=== PATIENT | female | born 1960 | race Caucasian/White ===

== ENCOUNTER 2016-07-24 20:50 | Emergency (ER) | payer OTHER ==
[~2016-07-24] VITALS: Ht 165.1 cm; Wt 79.0 kg
[~2016-07-24 20:50] MED LIST: BUPR1TAB36 SL; GABA100C PO; INSLIS SUBQ; INSU100I13 SUBQ; LAMO25TA PO; METF500T PO; NICO1PAT16 TRANSDERM; OLAN5TAB PO; SERT50TA9 PO
[2016-07-24 20:59] VITALS: BP 135/94; PULSE 94; RESP 20; O2SAT 96
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
[2016-07-24] MEDS ORDERED: LORazepam 1 mg Tablet PO ONE (22:40)
[2016-07-25 00:46] VITALS: BP 141/79; PULSE 86; RESP 16; O2SAT 98
== END 2016-07-24 23:35 | disposition home or self-care (01) ==
LOC: EDBD 20:50 → SED 20:50 → EDUNIT# 20:50 → SED 23:35
DX: S00.83XA Contusion of other part of head, initial encounter (principal); X83.8XXA Intentional self-harm by other specified means, initial encounter; Y92.10 Unspecified residential institution as the place of occurrence of the external cause; Y93.89 Activity, other specified; Y99.8 Other external cause status; F19.20 Other psychoactive substance dependence, uncomplicated; R45.1 Restlessness and agitation; F43.0 Acute stress reaction; F31.9 Bipolar disorder, unspecified; K21.9 Gastro-esophageal reflux disease without esophagitis; E11.9 Type 2 diabetes mellitus without complications; F17.200 Nicotine dependence, unspecified, uncomplicated; Z91.5 Personal history of self-harm; Z79.4 Long term (current) use of insulin; Z79.84 Long term (current) use of oral hypoglycemic drugs; Z88.8 Allergy status to other drugs, medicaments and biological substances

== ENCOUNTER 2016-09-28 12:20 | Emergency (ER) | payer OTHER ==
[~2016-09-28] VITALS: Ht 165.1 cm; Wt 75.0 kg
[2016-09-28 12:21] VITALS: BP 123/85; PULSE 91; RESP 20; O2SAT 97
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
[2016-09-28] MEDS ORDERED: Albuterol-Ipratropium 3 mL Inhalation Solution NEB ONE (13:10)
[2016-09-28 13:26] LABS: BASOPHILS % (AUTO) 0.1 % (0-3); EOSINOPHILS % (AUTO) 0 % (0-5); MONOCYTES % (AUTO) 8.7 % (4-12); Mean Corpuscular Hemoglobin 31.6 pg (27.0-35.0); Mean Corpuscular Volume 96.8 fL (81-100); NEUTROPHILS % (AUTO) 71.2 % (40-74); Platelet Count 279 bil/L (150-400)
[2016-09-28 13:27] VITALS: PULSE 88; RESP 16; O2SAT 98
[2016-09-28] MEDS ORDERED: predniSONE 20 mg Tablet PO ONE (13:50)
--- NOTE | 2016-09-28 13:50 | DRSVH ---
PROCEDURE: X-RAY CHEST, TWO VIEWS ([id number]) INDICATIONS: cough for 3 weeks TECHNIQUE: 2 views of the chest were acquired. COMPARISON: [facility], CR, XR CHEST 1VW (PORTABLE), 02/08/2016, 4:26. FINDINGS: Surgical changes and devices: None. Lungs and pleura: No pleural effusions or pneumothorax. Lungs are clear. Mediastinum: Mediastinal contours are normal. Heart size is normal. Bones and chest wall: No suspicious bony abnormalities. Soft tissues appear unremarkable. IMPRESSION: No acute pulmonary process. Dictated by: Alba Smith M.D. on 09/28/2016 at 13:48 Approved by: Alba Smith M.D. on 09/28/2016 at 13:49
[2016-09-28 14:06] VITALS: BP 102/74; PULSE 89; RESP 15; O2SAT 97
[2016-09-28 14:07] VITALS: BP 102/74; PULSE 89; RESP 15; O2SAT 97
== END 2016-09-28 14:08 | disposition home or self-care (01) ==
LOC: SED 12:20
DX: J44.9 Chronic obstructive pulmonary disease, unspecified (principal); K21.9 Gastro-esophageal reflux disease without esophagitis; E11.9 Type 2 diabetes mellitus without complications; F31.9 Bipolar disorder, unspecified; F17.200 Nicotine dependence, unspecified, uncomplicated; Z79.4 Long term (current) use of insulin; Z79.84 Long term (current) use of oral hypoglycemic drugs; Z88.8 Allergy status to other drugs, medicaments and biological substances; Z86.19 Personal history of other infectious and parasitic diseases
CPT/HCPCS: 36415; 71020; 80053; 83735; 85025; 94664; 99284; J7620

== ENCOUNTER 2016-11-24 11:49 | Emergency (ER) | payer OTHER ==
[~2016-11-24] VITALS: Ht 165.1 cm; Wt 77.3 kg
[2016-11-24 11:55] VITALS: BP 124/82; PULSE 73; RESP 16; O2SAT 98
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
[2016-11-24 12:57] LABS: BASOPHILS % (AUTO) 0.5 % (0-3); EOSINOPHILS % (AUTO) 2.8 % (0-5); MONOCYTES % (AUTO) 8.5 % (4-12); Mean Corpuscular Hemoglobin 27.5 pg (27.0-35.0); Mean Corpuscular Volume 82.2 fL (81-100); NEUTROPHILS % (AUTO) 55.1 % (40-74); Platelet Count 150 bil/L (150-400)
[2016-11-24] MEDS ORDERED: LORazepam 1 mg Tablet PO ONE (13:00)
[2016-11-24 17:18] VITALS: BP 103/58; PULSE 63; RESP 18; O2SAT 97
[2016-11-24] MEDS ORDERED: LORazepam 2 mg Tablet PO ONE (17:50)
[2016-11-24 22:57] VITALS: BP 91/68; PULSE 73; RESP 18; O2SAT 98
== END 2016-11-24 23:28 ==
LOC: SED 11:49
DX: F32.9 Major depressive disorder, single episode, unspecified (principal); R45.851 Suicidal ideations; F43.0 Acute stress reaction; E11.9 Type 2 diabetes mellitus without complications; F31.9 Bipolar disorder, unspecified; K21.9 Gastro-esophageal reflux disease without esophagitis; Z79.84 Long term (current) use of oral hypoglycemic drugs; Z79.4 Long term (current) use of insulin; F17.200 Nicotine dependence, unspecified, uncomplicated; Z88.8 Allergy status to other drugs, medicaments and biological substances

== ENCOUNTER 2016-12-05 16:41 | Emergency (ER) | payer OTHER ==
[~2016-12-05] VITALS: Ht 165.1 cm; Wt 72.7 kg
[2016-12-05 16:55] VITALS: BP 133/80; PULSE 81; O2SAT 96
[2016-12-05 17:10] VITALS: BP 127/61; PULSE 75; RESP 12; O2SAT 97
[2016-12-05 18:10] VITALS: BP 99/74; PULSE 78; RESP 14; O2SAT 94
[2016-12-05 18:18] LABS: Mean Corpuscular Hemoglobin 27.7 pg (27.0-35.0); Mean Corpuscular Volume 83.7 fL (81-100)
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
[2016-12-05 19:30] VITALS: BP 113/71; PULSE 79; RESP 12; O2SAT 95
[2016-12-05 19:40] VITALS: BP 111/74; PULSE 77; RESP 18; O2SAT 95
[2016-12-05 20:50] VITALS: BP 147/86; PULSE 75; RESP 17; O2SAT 100
[2016-12-05] MEDS ORDERED: Naloxone 0.4 mg/mL 10 mL Inj IVPUSH PRN (21:10)
[2016-12-05] MEDS ORDERED: Naloxone Inj 2 MG in 0.9% Sodium Chloride 500 ML IV PRN (21:10)
[2016-12-05] MEDS ORDERED: _Naloxone 2 mg/2 mL 2 Syringe Kit (NASAL USE) NASAL PRN (23:00)
[2016-12-06 00:08] VITALS: BP 132/69; PULSE 74; RESP 18; O2SAT 95
== END 2016-12-06 00:10 ==
LOC: EDBD 16:41 → EDUNIT# 16:41 → SED 16:41
DX: T40.1X1A Poisoning by heroin, accidental (unintentional), initial encounter (principal); F11.20 Opioid dependence, uncomplicated; X58.XXXA Exposure to other specified factors, initial encounter; Y92.9 Unspecified place or not applicable; Y93.89 Activity, other specified; Y99.8 Other external cause status; B18.2 Chronic viral hepatitis C; K21.9 Gastro-esophageal reflux disease without esophagitis; E11.9 Type 2 diabetes mellitus without complications; F31.9 Bipolar disorder, unspecified; F43.10 Post-traumatic stress disorder, unspecified; F41.9 Anxiety disorder, unspecified; F17.200 Nicotine dependence, unspecified, uncomplicated; Z91.5 Personal history of self-harm; Z79.84 Long term (current) use of oral hypoglycemic drugs; Z79.4 Long term (current) use of insulin; Z88.8 Allergy status to other drugs, medicaments and biological substances
CPT/HCPCS: 36415; 80053; 81002; 81025; 82948; 84484; 85027; 93005; 96374; 96375; 99285; G0480; J1885; J2310

== ENCOUNTER 2016-12-12 22:19 | Emergency (ER) | payer OTHER ==
[~2016-12-12] VITALS: Ht 165.1 cm; Wt 77.3 kg
[2016-12-12 22:23] VITALS: BP 139/80; PULSE 105; RESP 16; O2SAT 94
== END 2016-12-13 00:15 | disposition left against medical advice (07) ==
LOC: SED 22:19
DX: R45.851 Suicidal ideations (principal); Z53.29 Procedure and treatment not carried out because of patient's decision for other reasons

== ENCOUNTER 2016-12-16 09:31 | Emergency (ER) | payer OTHER ==
[~2016-12-16] VITALS: Ht 165.1 cm; Wt 79.5 kg
[2016-12-16 09:37] VITALS: BP 154/105; PULSE 86; RESP 14; O2SAT 97
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
[2016-12-16] MEDS ORDERED: LORazepam 2 mg Tablet PO ONE (10:10)
[2016-12-16 12:01] VITALS: BP 139/77; PULSE 81; O2SAT 97
== END 2016-12-16 11:59 | disposition home or self-care (01) ==
LOC: SED 09:31
DX: F10.10 Alcohol abuse, uncomplicated (principal); F13.10 Sedative, hypnotic or anxiolytic abuse, uncomplicated; E11.9 Type 2 diabetes mellitus without complications; F31.9 Bipolar disorder, unspecified; F43.10 Post-traumatic stress disorder, unspecified; K21.9 Gastro-esophageal reflux disease without esophagitis; F41.9 Anxiety disorder, unspecified; B19.20 Unspecified viral hepatitis C without hepatic coma; F17.200 Nicotine dependence, unspecified, uncomplicated; Z91.5 Personal history of self-harm; Z79.84 Long term (current) use of oral hypoglycemic drugs; Z88.8 Allergy status to other drugs, medicaments and biological substances

== ENCOUNTER 2017-02-22 12:05 | Inpatient (IN) | payer OTHER, MEDICAID ==
[2017-02-22] VITALS (7 sets, daily range): BP systolic 98–147; BP diastolic 70–89; PULSE 74–113; RESP 14–26; O2SAT 93–100
[~2017-02-22] VITALS: Ht 165.1 cm; Wt 78.3 kg
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
[2017-02-22 14:02] LABS: BASOPHILS % (AUTO) 0.2 % (0-3); EOSINOPHILS % (AUTO) 1.8 % (0-5); MONOCYTES % (AUTO) 6.4 % (4-12); Mean Corpuscular Hemoglobin 27.3 pg (27.0-35.0); Mean Corpuscular Volume 81.4 fL (81-100); NEUTROPHILS % (AUTO) 42.5 % (40-74); Platelet Count 137 bil/L (150-400)
[2017-02-22 14:21] LABS: Magnesium 1.7 mg/dL (1.6-2.6)
[2017-02-22] MEDS ORDERED: GABA-500 PO (14:30)
[2017-02-22] MEDS ORDERED: IPRA3AMP INH (14:36)
[2017-02-22] MEDS ORDERED: INSU100I13 SUBQ (14:36)
[2017-02-22] MEDS ORDERED: SERT100T9 PO (14:36)
[2017-02-22] MEDS ORDERED: ALBU18HF INH (14:36)
[2017-02-22] MEDS ORDERED: HUM100IN3 SUBQ (14:36)
[2017-02-22] MEDS ORDERED: METF1000 PO (14:36)
--- NOTE | 2017-02-22 14:58 | DRSVH ---
PROCEDURE: CT BRAIN WITHOUT CONTRAST ([id number]) INDICATIONS: ACUTE SEIZURE TECHNIQUE: Noncontrast 4.5 mm thick angled axial sections acquired from the foramen magnum to the vertex, with c oronal reformats. COMPARISON: None. FINDINGS: Image quality: Limited by motion artifact. CSF spaces: Basal cisterns are patent. No extra-axial fluid collections. The ventricles are symmet bettina in size and shape. Brain: No intracranial bleeds or masses. There is cerebral volume loss for age, with resultant vent ricular and sulcal prominence. There are minimal periventricular and deep white matter chronic small vessel ischemic changes. There is intracranial internal carotid artery and vertebral artery atheros clerosis. Skull and face: Calvarium and visualized facial bones appear intact, without suspicious lesions. Sinuses: Visualized sinuses and mastoids are clear. IMPRESSION: No acute intracranial disease process. Dictated by: Niecy Acevedo MD, PhD on 02/22/2017 at 14:55 Approved by: Niecy Acevedo MD, PhD on 02/22/2017 at 14:57
[2017-02-22] MEDS ORDERED: Alum-Mag Hydrox-Simeth 30 mL Suspension PO PRN (15:20)
[2017-02-22] MEDS ORDERED: Ondansetron 2 mg/mL 2 mL Inj IVPUSH PRN (15:20)
[2017-02-22] MEDS ORDERED: Polyethylene Glycol (PEG) 17 Gm Powder PO PRN (15:20)
--- NOTE | 2017-02-22 15:31 | DRSVH ---
PROCEDURE: CT CERVICAL SPINE WITHOUT CONTRAST ([id number]) INDICATIONS: trauma TECHNIQUE: Noncontrast 3 mm thick sections acquired from the skull base to the T4 level. Sagittal and coronal r eformats were then constructed. For radiation dose reduction, the following was used: automated exp osure control, adjustment of mA and/or kV according to patient size. COMPARISON: [facility], CT, CT CERVICAL SPINE WO CON, 09/21/2015, 11:35. FINDINGS: Image quality: Excellent. Bones: No fractures or dislocations. Visualized superior ribs are intact. Moderate disc space narr owing at C5-6. There is trace retrolithesis of C4 of C5, C5 on C6. Soft tissues: Prevertebral soft tissues are normal in thickness. No paravertebral hematomas. No ap ical pneumothoraces. IMPRESSION: Multilevel degenerative changes. No visualized fracture. Dictated by: Alba Smith M.D. on 02/22/2017 at 14:24 Approved by: Alba Smith M.D. on 02/22/2017 at 14:29
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
[2017-02-22] MEDS: 0.9% Sodium Chloride 1,000 ML IV SCH (16:03)
[2017-02-22] MEDS ORDERED: Glucose 40% Oral Gel 15 Gm Tube PO PRN (16:50)
[2017-02-22] MEDS ORDERED: 0.9% Sodium Chloride 1,000 ML IV ONE (16:50)
[2017-02-22] MEDS ORDERED: 0.9% Sodium Chloride 500 ML IV ONE (16:50)
[2017-02-22] MEDS ORDERED: Thiamine Inj 200 MG in Dextrose 5% 50 ML IV ONE (16:55)
[2017-02-22] MEDS: Heparin 5,000 Unit/mL Inj SUBQ SCH (17:05)
[2017-02-22] MEDS: Insulin LISPRO 300 Unit/3 mL Inj SUBQ SCH ×2 (17:30→20:29)
--- NOTE | 2017-02-22 19:08 | NUR ---
Admit/CIWA Pt arrived to CCU at 1545 in stable condition. A&O x3 with CIWA scores 0-1. Seizure precautions started, Guadalupe bed alarm on. 2L NC at 97%, pt able to turn independently in bed, asking to watch TV. BP starting to trend down, notified, NS bolus 1.5L given with good response to fluid (see CCU flow sheet). Frequent rounding and CIWA protocol assessments continue.
[2017-02-22] MEDS: Famotidine Inj 20 MG in IV Premix 1 EACH IV SCH (20:30)
[2017-02-22] MEDS: Insulin GLARgine 100 Unit/mL Syringe SUBQ SCH (22:23)
[2017-02-22 22:40] LABS: APPEARANCE,URINE CLEAR (CLEAR,HAZY); COLOR,URINE YELLOW (YELLOW); OCCULT BLOOD,URINE NEGATIVE (NEGATIVE); PH,URINE 5.5 (5.0-8.0); UROBILINOGEN,URINE NORMAL (NORMAL)
[2017-02-23] VITALS (8 sets, daily range): BP systolic 113–167; BP diastolic 50–100; PULSE 65–91; RESP 16–24; O2SAT 94–97
[2017-02-23] MEDS: Heparin 5,000 Unit/mL Inj SUBQ SCH ×3 (00:48→16:30)
[2017-02-23] MEDS: 0.9% Sodium Chloride 1,000 ML IV SCH ×2 (00:49→07:01)
[2017-02-23 05:32] LABS: BASOPHILS % (AUTO) 0.3 % (0-3); EOSINOPHILS % (AUTO) 2.9 % (0-5); MONOCYTES % (AUTO) 8.2 % (4-12); Mean Corpuscular Hemoglobin 27.7 pg (27.0-35.0); Mean Corpuscular Volume 82.4 fL (81-100); Platelet Count 116 bil/L (150-400)
--- NOTE | 2017-02-23 07:40 | NUR ---
CIWA Pt reports starting to feel withdrawal symptoms. Describes the feeling as "the heeby geebies". IV Valium 5mg working so far to settle pt. Max CIWA for NOC shift 11. Will continue to monitor. Seizure precautions and bed alarm. Care ongoing
[2017-02-23] MEDS: Insulin LISPRO 300 Unit/3 mL Inj SUBQ SCH ×4 (08:00→22:57)
[2017-02-23] MEDS: Multivit-Miner-Folic Acid-Iron Tablet PO SCH (08:30)
--- NOTE | 2017-02-23 10:35 | NUR ---
NUTRITION ASSESSMENT: ASSESS: Pt is a 56yo F admitted to CCU for ETOH withdrawal. Pt had a seizure 02/22. Current CIWA is ~11. She is on a Diabetic Diet. No PO recorded yet. Pt reported that she was drinking ~1/2 gallon of vodka/day. Per chart review, pt's wt has been stable x1 year. PMHX: alcohol abuse, Hep C, Hiatal hernia, GERD, DM, PTSD, Bipolar LABS: Reviewed. Catering Driver .39, Glu 189, Ca 8.0, Alb 3.5 MEDS: Reviewed. Insulin, thiamine, MVI GI: 0 BM yet SKIN: no major issues noted CURRENT WTS: 76.8kg, BMI 28.2kg/m2, IBW: 56.8kg DIET: Diabetic EST. NEEDS: Kcals: 1920-2305kcal/day (25-30kcal/kg) Pro: 75-95g/day (1.0-1.2g/kg) NUTRITION DIAGNOSIS: 1.) Inadequate oral intake related to excessive alcohol intake as evidence by pt reported to drink gallon of vodka/day. NUTRITION INTERVENTION: 1.) Will monitor PO intake and labs MONITOR / EVAL: PO, wt, GI, labs, POC, nutrition status. Will continue to monitor per moderate nutrition risk guidelines
--- NOTE | 2017-02-23 13:57 | NUR ---
Social Work: Initial Assessment/Multidisciplinary Rounds D: Per EMR review, pt is a 56 year old female admitted for ETOH Withdrawal. Pt is [facility] with no additional insurance, LTC or VA benefits. PCP is Aliza Sheehan DO at the [facility]. NOK is Trini Pearce, friend, . Advanced directives information provided to the patient. Readmit score is high, 4/8. PT discussed in multidisciplinary rounds; pt will require a chemical dependency assessment. Provider has placed order. BUTTON RIVETER acknowledges order; see CD assessment in separate note. BUTTON RIVETER met with the patient at bedside to discuss discharge planning. Sw role explained; contact information and d/c planning checklist provided to patient. Pt states that she has been living in [place], renting a room. Pt uses no DME, does not drive but is otherwise I with her own self-care. The patient has a health homes worker from [employer], Юлия Rendon ([phone]) who assists the patient with transportation to medical appointments and helping pt to follow up with care as an outpatient. At this time, the patient is declining to speak with a Production Team Leader (CDP) from [facility] for a bedside assessment. Pt states that she is not interested in treatment at this time (see CD Assessment). A: Pt who is I at baseline P: Anticipate pt to discharge home when medically stable; BUTTON RIVETER to continue to follow to assess for discharge needs. ERIKA Quinn Addendum: 02/23/17 at 1409 by ADAM GALLOWAY Amended: Links added.
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
--- NOTE | 2017-02-23 14:13 | NUR ---
Social Work: Chemical Dependency Assessment Current Circumstances/Reason for Referral: 56 year old female admitted for ETOH Withdrawal to [facility]. Pt has a long history of polysubstance use including ETOH, THC, benzodiazepines and heroin. Pt states that she was drinking approximately 1/2 gallon vodka daily for several weeks. History of Substance Use/Treatment: Pt states that she has been using ETOH and other substances for approximately 30 years. The patient has completed inpatient CD treatment multiple times with stays at [facility], [facility], and most recently [facility] in [place] in 2010. After her treatment in 2010 pt reports her longest period of sobriety was 9 months. Withdrawal Symptoms: Pt states that when she experiences withdrawals her symptoms include flu-like symptoms, shaking, vomiting, sweating along with seizures. Mental Health History: The patient is diagnosed with bi-polar and has had at least one suicide attempt via heroin overdose in 2016. The patient was discharged to [facility], volunatirly The patient states that she is not currently enrolled in supportive outpatient services. She was formerly engaged in counseling through [facility] but stopped going to groups and counseling when she started to buy Benzos from a fellow group member. Pt states that she does not currently have any suicidal or homicidal ideation. Family History: Pt states that she is adopted and does not know her biological medical history. Pt states her adopted father was a doctor. Perceptions of Use/Stages of Change: Pt has good insight into her disease process and knows that she needs to quit using ETOH and substances but has limited motivation to complete the necessary tasks for long-term sobriety. Disposition: Pt was provided with outpatient CD resources and declined a CDP assessment from [facility]. Pt states that she does not want to go back to inpatient treatment and states that she knows the tools she needs to stay sober. The patient declined to have BALLIST[employer] EXPERT get her re-established with her outpatient Counseling through [facility]. Pt will likely discharge home and need to follow up with supportive CD services on her own. ERIKA Quinn
[2017-02-23] MEDS: Famotidine Inj 20 MG in IV Premix 1 EACH IV SCH ×2 (17:53→20:07)
--- NOTE | 2017-02-23 21:42 | NUR ---
Transfer to room 3004 Pt made aware of transfer with understanding noted. C/o headache and anxiety. CIWA 12. Valium 10 mg x1 given with some effect. Pt still getting a little bit anxious. Lorazepam given and noted pt was calmer and sleeping afterwards. Report given to Chelsey. Transferred pt to room 3004 with all belongings, meds and chart. Out of the room around 2144.
[2017-02-23] MEDS: Insulin GLARgine 100 Unit/mL Syringe SUBQ SCH (22:13)
--- NOTE | 2017-02-23 22:45 | NUR ---
Transfer pt arrived to room 3004 from room 2014, around 21:45 via wheelchair, all belongings with pt and locked in closet per security lock. pt is A&Ox3. pt IV is patent, IVF infusing. BG 214, scheduled Lantus administered, PRN Lispro requested from pharmacy-not available upon arrival to the room. CIWA score of 16, pt verbalized ativan more effective than Valium, administered per MD orders. seizure pads placed. call light placed within reach, pt verbalized understanding of use. hourly rounding in effect.
[2017-02-24] MEDS: Heparin 5,000 Unit/mL Inj SUBQ SCH ×3 (00:36→17:46)
[2017-02-24] MEDS: 0.9% Sodium Chloride 1,000 ML IV SCH ×2 (02:30→07:16)
[2017-02-24 04:18] VITALS: BP 149/90; PULSE 65; RESP 18; O2SAT 96
[2017-02-24 05:36] LABS: BASOPHILS % (AUTO) 0.3 % (0-3); EOSINOPHILS % (AUTO) 3.7 % (0-5); MONOCYTES % (AUTO) 8.7 % (4-12); Mean Corpuscular Hemoglobin 27.4 pg (27.0-35.0); Mean Corpuscular Volume 81.8 fL (81-100); NEUTROPHILS % (AUTO) 41.7 % (40-74); Platelet Count 85 bil/L (150-400)
[2017-02-24 06:20] LABS: Magnesium 1.7 mg/dL (1.6-2.6); Phosphorus 3.3 mg/dL (2.5-4.9)
[2017-02-24] MEDS: Insulin LISPRO 300 Unit/3 mL Inj SUBQ SCH ×4 (08:00→20:59)
[2017-02-24 08:50] VITALS: BP 120/66; PULSE 83; RESP 18; O2SAT 97
[2017-02-24] MEDS: Multivit-Miner-Folic Acid-Iron Tablet PO SCH (09:50)
[2017-02-24] MEDS: Famotidine Inj 20 MG in IV Premix 1 EACH IV SCH (09:50)
[2017-02-24 10:21] VITALS: PULSE 62
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
[2017-02-24 13:45] VITALS: BP 134/50; PULSE 85; RESP 18; O2SAT 96
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
--- NOTE | 2017-02-24 15:23 | NUR ---
Behavior/CIWA This RN entered pt room to find pt tearful. She stated that she needed to leave. When asked what her plan would be if she leaves she stated "I don't know". She was asked if she had spoken with SW yet to get resources. Pt stated "No". This RN went to discuss pt's distress with SW and was told that SW had been in the pt room for last 45 minutes. SW also stated that the Casing In Line Setter had been asked to visit with pt. When pt was reaproached, she was still tearful and stated that her skin was crawling. Reassessed CIWA at 10 and administered 1mg IV push Ativan. Pt stated that "I will stay now". At this time [facility] Casing In Line Setter arrived to talk with pt. Addendum: 02/24/17 at 1756 by PRISCILLA PEREZ RN Discussed with pt the need for her to communicate with nursing staff how she is feeling. Encouraged her to use call light if she is starting to experience any increase in her symptoms. Emphasized that RNs are here to help her through her withdrawals, and medicate her as necessary. Pt voiced understanding.
--- NOTE | 2017-02-24 15:42 | NUR ---
spiritual care: wrapper opener referral pt expressed overwhelm with current medical situation and her mixed feelings about discharging possibility to rehab facility. Pt described her social/spiritual support as sustaining to her and her thoughts that she "knows what rehab offers" pt reflected briefly on relapse and emphasized it was from drinking and was related to loneliness. Pt said she is tired now but was eager for more conversational time tomorrow. She expressed gratitude for her steve, for advocates in her life and for the chance to make decisions about her life and health. Prayer
--- NOTE | 2017-02-24 18:05 | NUR ---
Rapid Response/Seizure RN walked past pt room and discovered pt laying just within the doorway experiencing seizure activity. RN pressed code blue button as could not see any staff in hallway. This RN placed pt on her side and protected her head from injury while maintaining an airway. As staff arrived this RN called for a rapid response and to cancel code blue. Pt was placed on oxymask 25L. Pt HR 120 per Tele. SPO2 95%. MD ordered 2mg of Ativan stat IV push which was administered. Pt became postictal. Pt was carried to bed using full body sling. MDs assessed and ordered blood work, stat head CT, ABG, 1000mg IV Keppra. This RN transported pt to CT for scan and then transferred pt to CCU room 2019. Report was given to Elisabet Rico RN.
[2017-02-24] MEDS ORDERED: levETIRAcetam Inj 1,000 MG in IV Premix 1 EACH IV ONE (18:20)
--- NOTE | 2017-02-24 18:54 | ABG ---
DateTimeAnalyzed 18:46:02 -_ pH ____7.486 - 7.350 7.450 pCO2 ___34.5__ -mmHg 35.0 45.0 pO2 ___87.1__ -mmHg 69.0 116 HCO3- ___26.0__ -mmol/L 22.0 26.0 ABE ____2.5__ -mmol/L -2.0 2.0 tHb ___12.3__ -g/dL 12.0 18.0 O2Hb ___96.9__ -% COHb ____1.7__ -% 0.0 1.5 MetHb ____0.1__ -% 0.4 1.5 sO2 ___98.8__ -% FIO2 ___21.0__ -% Drawn By LT - Date/Time Notified____ 18:54:00 -_ Notified By LT - Notified Whom ___DR NEVAREZ - K+ ____3.9__ -mmol/L 3.5 5.0 tO2 ___16.9__ -Vol% Asad test _Positive -
[2017-02-24 18:55] LABS: BASOPHILS % (AUTO) 0.2 % (0-3); EOSINOPHILS % (AUTO) 1.8 % (0-5); MONOCYTES % (AUTO) 7.1 % (4-12); Mean Corpuscular Hemoglobin 28.1 pg (27.0-35.0); NEUTROPHILS % (AUTO) 61.8 % (40-74); Platelet Count 103 bil/L (150-400)
--- NOTE | 2017-02-24 19:03 | PCM.PNMED ---
Subjective Date of Service Feb 24, 2017 Subjective Around 1800 this evening the patient was found shaking on the floor in the doorway of her room. Code blue was called and then changed to a rapid response. Patient was given 2mg Ativan and oxymask, and defib leads were placed on her chest showing sinus tach. By the time this was accomplished the patient had stopped shaking. Patient was assessed on the floor, found to have a large goose egg on her head, and was confused. She was lifted and placed back in bed. Initially she was confused but responded to directions. Pupils were responsive on the right more than left but were appropriate in size. After additional recovery the patient passed a full cranial and sensory exam, and became more oriented. CMP, CBC, trop, lactic, CK, and ABG were ordered stat. There was significant difficulty obtaining access to her veins likely due to prior IV drug abuse and overall poor quality of veins. CT brain without contrast was ordered stat and is currently pending. Exam Vital Signs Vital Sign - Last Date Time Temp Pulse Resp B/P Pulse Ox O2 Delivery O2 Flow Rate FiO2 02/24/17 13:45 36.3 85 18 134/50 96 Room Air 02/22/17 16:00 2.00 Intake and Output 02/23/17 02/23/17 02/24/17 Cumulative From/Thru 15:00 23:00 07:00 02/22/17 12:17 - 02/24/17 05:45 Intake Total 3501 ml 2528 ml 878 ml 6907 ml Output Total 1300 ml 900 ml 2100 ml 4300 ml Balance 2201 ml 1628 ml -1222 ml 2607 ml Intake Oral 950 ml 800 ml 100 ml 1850 ml IV Total 2551 ml 1728 ml 778 ml 5057 ml Output Urine Total 1300 ml 900 ml 2100 ml 4300 ml # Voids 4 4 # Bowel Movements 0 2 2 Exam General: Older than stated age, conversant female HEENT: PERRLA, EOMI, nonicteric, membranes moist Lymph: No lymphadenopathy Cardio: Regular rate and rhythm Respiratory: CTA bilaterally, mild crackles bilateral bases Abdomen: Soft, positive bowel sounds, nontender, nondistended Extremities: No edema,sensation intact Psych: Conversant and appropriate Neuro: CN II through XII grossly intact, sensation intact throughout Skin: No rash IVs and Medications Medications Reviewed: Medications were reviewed in detail Lab and Diagnostics Result Diagram: 02/24/17 0510 02/24/17 0510 X-Rays, CTs and MRIs Brain CT IMPRESSION: No acute intracranial disease process. Dictated by: Niecy Acevedo MD, PhD on 02/22/2017 at 14:[address] IMPRESSION: Multilevel degenerative changes. No visualized fracture. Dictated by: Alba Smith M.D. on 02/22/2017 at 14:24 Assessment & Plan 56-year-old female who presents to emergency department for detox from alcohol prior to going into rehabilitation. The patient was in the emergency department she suffered a seizure while walking from triage to her room. Patient then got out of bed and had a second fall while in her room. Alcohol dependence with withdrawal and seizure; present on admission; ongoing and improving -Patient drinking half gallon of vodka daily -Multiple attempts to withdraw and detox -CIWA protocol with phenobarbital 130 mg given once at the beginning -Restraints as necessary -Social work referral for CD -Thiamine 200mg daily -U-Tox revealed marijuana, alcohol, and barbiturates that we gave her. 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 -Continue current treatment plan 02/24/17 Seizur disorder, unknown; present on admission; ongoing -Pt seized in the ED and was initially thought to be due to EtOH withdrawal -Today (02/24/17) patient had a second witnessed seizure at 1800 -After recovery pt was asked again about prior seizures not related to EtOH use and replied she does have a seizure disorder -Keppra 1g loaded now -Keppra 500mg daily -Consider EEG tomorrow; discharge with keppra script and follow-up with neurology -Pending: CT brain w/o contrast, lactic acid, CBC/CMP/CK/Trop -Transfer patient to [facility] Anion gap metabolic acidosis; present on admission; resolved -Lactic acid 2.9 resolved to 1.4 -1.5 L normal saline and 100 mL/HR continued -Recheck in a.m. Hepatitis C; present on admission; unknown chronicity -Previous history of IV drug abuse -Do not see a viral load in her history -Viral load still pending 02/24/17 Type II diabetes with neuropathy; present on admission; ongoing and stable -Last A1c was 8.9 -Home medication: 3 units subcutaneous at bedtime Lantus; 0-11 units 3 times a day WM; metformin -Hold metformin -Lantus 10 in the evening -Low-dose correctional with preprandial 5 units -Hold gabapentin 100 mg by mouth 3 times a day -124 this morning at 8:00 GERD-famotidine 20 mg IV twice a day PTSD/bipolar/depression/anxiety-continue sertraline History of heroin abuse Disposition: Likely discharge tomorrow. She remains in the hospital due to elevated CIWA score in no small tremors with an observed seizure in the emergency department prior to admit. Full code Pain Evaluation: Adequate Pain Control GI Prophylaxis: H2 michelle VTE Mechanical Devices: Intermittant Pneumatic CD Resuscitation Status: CPR: Attempt Resuscitation Time spent 45minutes Attending Statement The patient was seen and examined together with Dr. Eaton on 02/24/17 and I have added additional information to the note above. Karlos Eaton DO Feb 24, 2017 19:03 Keysha Hay DO Feb 25, 2017 16:36
--- NOTE | 2017-02-24 19:08 | DRSVH ---
PROCEDURE: CT BRAIN WITHOUT CONTRAST ([id number]) INDICATIONS: SEIZURE AND HEAD TRAUMA/glf TECHNIQUE: Noncontrast 4.5 mm thick angled axial sections acquired from the foramen magnum to the vertex, with c oronal reformats. COMPARISON: [facility], CT, CT BRAIN WO CON, 02/22/2017, 14:42. FINDINGS: Image quality: Excellent. CSF spaces: Basal cisterns are patent. No extra-axial fluid collections. Ventricles are normal in size and shape. Brain: No midline shift. No intracranial masses or hemorrhage. Anderson-white matter interface is norm al. Skull and face: Calvarium and visualized facial bones are intact, without suspicious lesions. Sinuses: Visualized sinuses and mastoids are clear. IMPRESSION: No acute intracranial disease process. Dictated by: Niecy Acevedo MD, PhD on 02/24/2017 at 19:05 Approved by: Niecy Acevedo MD, PhD on 02/24/2017 at 19:07
[2017-02-24 19:21] LABS: TROPONIN T < 0.010 ug/L (0.0-0.011)
[2017-02-24 19:31] LABS: Creatine Kinase 48 U/L (21-215)
[2017-02-24 20:35] VITALS: BP 156/86; PULSE 65; PULSE 72; RESP 22; O2SAT 97
[2017-02-24] MEDS: Insulin GLARgine 100 Unit/mL Syringe SUBQ SCH (20:59)
--- NOTE | 2017-02-24 23:24 | NUR ---
Transfer to CCU Pt transferred [place] [facility] s/p seizure. Initially A&O only to person. She suddenly because extremely disoriented and started hallucinating: "There are 3 Citizen [place] men over by the door and they want to rape/hurt me" "There are centipedes biting me" "I see gargoyles and demons and bugs on the ceiling". IV Valium and Ativan for symptoms. CIWA 16-38. [place] alarm on bed. Reorientation for when tires to climb out of bed in fear. MD aware. Care ongoing
[2017-02-25] VITALS (8 sets, daily range): BP systolic 117–156; BP diastolic 63–97; PULSE 61–72; RESP 16–22; O2SAT 94–97
[2017-02-25] MEDS: Heparin 5,000 Unit/mL Inj SUBQ SCH ×3 (01:43→17:27)
[2017-02-25] MEDS: 0.9% Sodium Chloride 1,000 ML IV SCH ×3 (01:44→09:23)
[2017-02-25 03:01] LABS: BASOPHILS % (AUTO) 0.2 % (0-3); EOSINOPHILS % (AUTO) 3.1 % (0-5); MONOCYTES % (AUTO) 7.5 % (4-12); Mean Corpuscular Hemoglobin 27.8 pg (27.0-35.0); Mean Corpuscular Volume 79.6 fL (81-100); NEUTROPHILS % (AUTO) 55.3 % (40-74); Platelet Count 103 bil/L (150-400)
[2017-02-25] MEDS: Insulin LISPRO 300 Unit/3 mL Inj SUBQ SCH ×4 (08:00→21:11)
[2017-02-25] MEDS ORDERED: Ketorolac 15 mg/mL Inj IVPUSH ONE (08:35)
[2017-02-25] MEDS: Multivit-Miner-Folic Acid-Iron Tablet PO SCH (08:54)
--- NOTE | 2017-02-25 14:25 | NUR ---
Responded to Rapid Response. Patient placed on an 2L oxymask 100% HR 74 RR 22. Patient on floor assisted lift to bed.
[2017-02-25] MEDS ORDERED: levETIRAcetam Inj 1,500 MG in Dextrose 5% 100 ML IV SCH (14:30)
[2017-02-25] MEDS ORDERED: levETIRAcetam Inj 1,000 MG in IV Premix 1 EACH IV SCH (14:40)
--- NOTE | 2017-02-25 14:45 | PCM.PNMED ---
Subjective Date of Service Feb 25, 2017 Subjective Pt did well overnight and this AM. No complaints. This afternoon the patient had another witnessed seizure at 1400. She was stabilized with 2mg Ativan and sent for CT brain w/o contrast. Neurology was contacted and recommended Keppra 1500mg BID. Exam Vital Signs Vital Sign - Last Date Time Temp Pulse Resp B/P Pulse Ox O2 Delivery O2 Flow Rate FiO2 02/25/17 12:54 36.6 69 16 117/63 94 Room Air 02/22/17 16:00 2.00 Intake and Output 02/24/17 02/24/17 02/25/17 Cumulative From/Thru 15:00 23:00 07:00 02/22/17 12:17 - 02/25/17 00:30 Intake Total 779 ml 7686 ml Output Total 4300 ml Balance 779 ml 3386 ml Intake Oral 1850 ml IV Total 779 ml 5836 ml Output Urine Total 4300 ml # Voids 4 # Bowel Movements 2 Exam Gen: Post-ictal HEENT: Attempts to open eyes on command, no blood in mouth cardio: tachy Resp: CTA bilaterally in the lateral harris Abd: soft abdomen Ext:no edema, tense Neuro: post ictal IVs and Medications Medications Reviewed: Medications were reviewed in detail Lab and Diagnostics Result Diagram: 02/25/1725402/25/17 025 X-Rays, CTs and MRIs Brain CT IMPRESSION: No acute intracranial disease process. Dictated by: Niecy Acevedo MD, PhD on 02/22/2017 at 14:[address] IMPRESSION: Multilevel degenerative changes. No visualized fracture. Dictated by: Alba Smith M.D. on 02/22/2017 at 14:24 Assessment & Plan 56-year-old female who presents to emergency department for detox from alcohol prior to going into rehabilitation. The patient was in the emergency department she suffered a seizure while walking from triage to her room. Patient then got out of bed and had a second fall while in her room. Seizur disorder, unknown; present on admission; ongoing -Pt seized in the ED and was initially thought to be due to EtOH withdrawal -Today (02/25/17) patient had a third witnessed seizure at 1800 -After recovery pt was asked again about prior seizures not related to EtOH use and replied she does have a seizure disorder -Keppra 1.5g BID -EEG tomorrow -Neurology discussion was had after seizure today; possibly Alcohol dependence with withdrawal and seizure; present on admission; resolving -Patient drinking half gallon of vodka daily -Multiple attempts to withdraw and detox -CIWA protocol with phenobarbital 130 mg given once at the beginning -Restraints as necessary -Social work referral for CD -Thiamine 200mg daily -U-Tox revealed marijuana, alcohol, and barbiturates that we gave her. 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 Hepatitis C; present on admission; resolved -Previous history of IV drug abuse -Do not see a viral load in her history -Viral load not detected Type II diabetes with neuropathy; present on admission; ongoing and stable -Last A1c was 8.9 -Home medication: 3 units subcutaneous at bedtime Lantus; 0-11 units 3 times a day WM; metformin -Hold metformin -Lantus 10 in the evening -Low-dose correctional with preprandial 5 units -Hold gabapentin 100 mg by mouth 3 times a day -124 this morning at 8:00 GERD-famotidine 20 mg IV twice a day PTSD/bipolar/depression/anxiety-continue sertraline History of heroin abuse Disposition: She remains in the hospital due to persistent seizure activity on the floor Full code GI Prophylaxis: H2 michelle VTE Mechanical Devices: Intermittant Pneumatic CD Resuscitation Status: CPR: Attempt Resuscitation Attending Statement I interviewed and examined the patient on rounds today. Further evaluation of seizure disorder is underway. I agree with the assessment and plan as stated above. Karlos Eaton DO Feb 25, 2017 14:45 Camden Huff MD Feb 25, 2017 18:14
--- NOTE | 2017-02-25 17:54 | NUR ---
CIWA/seizures Pt CIWA scores ranged from 2-11 today during shift. A&O x3 the entire time, 2mg ativan given aprox q2h for pt feeling anxious and CIWA scores over 10. Pt sitting on side of bed for lunch with table in front of her, alert and calm at time, able to eat on her own. Sitter right next to patient. Sitter came out stating pt fell to floor and was seizing. Rapid Response called, at bedside, 2mg more ativan given. Oxymask put on pt, 100% on 5L, pt lifted back into bed using lift sheet as well as PT and staff. Frequent rounding and CIWA assessments ongoing.
--- NOTE | 2017-02-25 19:41 | NUR ---
CT scan: Pt was taken to [place] at [address] of head due to fall earlier this evening. Pt was transported per bed and returned to room at 1940. Sitter remains at bedside.
--- NOTE | 2017-02-25 19:58 | DRSVH ---
PROCEDURE: CT BRAIN WITHOUT CONTRAST ([id number]) INDICATIONS: SEIZURE TECHNIQUE: Noncontrast 4.5 mm thick angled axial sections acquired from the foramen magnum to the vertex, with c oronal reformats. COMPARISON: [facility], CT, CT BRAIN WO CON, 02/24/2017, 18:59. [facility], CT, CT BRAIN WO CON, 02/22/2017, 14:42. FINDINGS: Image quality: Excellent. CSF spaces: Basal cisterns are patent. No extra-axial fluid collections. Ventricles are normal in size and shape. Brain: No midline shift. No intracranial masses or hemorrhage. Anderson-white matter interface is norm al. Skull and face: Calvarium and visualized facial bones are intact, without suspicious lesions. Sinuses: Visualized sinuses and mastoids are clear. IMPRESSION: Normal for age, no source of seizure activity is seen, no trauma from seizure found. Dictated by: Gorge Wise M.D. on 02/25/2017 at 19:56 Approved by: Gorge Wise M.D. on 02/25/2017 at 19:56
[2017-02-25] MEDS: levETIRAcetam Inj 1,500 MG in Dextrose 5% 100 ML IV SCH (20:26)
[2017-02-25] MEDS: Insulin GLARgine 100 Unit/mL Syringe SUBQ SCH (21:10)
--- NOTE | 2017-02-25 21:31 | NUR ---
Agitation: Pt very restless and agitated stated "I'm leaving and going home", "your not doing anything here", and "you took my chew and vap". Pt was informed that she can not chew or smoke in the hospital. Informed her she has a nicotine patch on and showed it to her. Dr Dover was notified and said she is not stable to leave on her own due to recent seizures and receiving IV ativan with last dose around 1999. CIWA score was done and Valium 10mg was given IV at 2044. Repeat CIWA at 2114 was 9 and pt at easy listing to music and feeling sleepy. Sitter remains at bedside.
[2017-02-26] VITALS (7 sets, daily range): BP systolic 128–153; BP diastolic 62–91; PULSE 51–68; RESP 16–22; O2SAT 95–97
[2017-02-26] MEDS: Heparin 5,000 Unit/mL Inj SUBQ SCH ×3 (00:18→18:14)
[2017-02-26] MEDS: 0.9% Sodium Chloride 1,000 ML IV SCH ×3 (01:54→17:05)
[2017-02-26 03:16] LABS: BASOPHILS % (AUTO) 0.5 % (0-3); EOSINOPHILS % (AUTO) 3.6 % (0-5); MONOCYTES % (AUTO) 7.4 % (4-12); Mean Corpuscular Hemoglobin 27.9 pg (27.0-35.0); Mean Corpuscular Volume 80.8 fL (81-100); NEUTROPHILS % (AUTO) 50.2 % (40-74); Platelet Count 110 bil/L (150-400)
[2017-02-26 03:59] LABS: Magnesium 1.8 mg/dL (1.6-2.6)
[2017-02-26] MEDS: Insulin LISPRO 300 Unit/3 mL Inj SUBQ SCH ×4 (08:00→21:24)
[2017-02-26] MEDS: levETIRAcetam Inj 1,500 MG in Dextrose 5% 100 ML IV SCH ×2 (08:08→20:45)
[2017-02-26] MEDS: Multivit-Miner-Folic Acid-Iron Tablet PO SCH (08:51)
--- NOTE | 2017-02-26 10:48 | NUR ---
anxiety/ciwa ciwa score this am 8. pt reporting moderate anxiety. prn ativan given. pt states dose of 2mg effective.
--- NOTE | 2017-02-26 11:54 | NUR ---
Social Work Note: Continued Discharge Planning Data& Assessment: Pt was discussed in multidisciplinary rounds, per MD pt is not medically ready for discharge at this time. Pt is still going through withdrawal, last CIWA was 8. Pt had another seizure yesterday and is getting a repeat CT scan. INSURANCE INSTRUCTOR received phone call from [facility] case preparer and liner Jessa ([phone]. [phone]), who has been following pt for the past two years and wants to be a resource to the hospital if any discharge needs arise for pt. miriamBanner denies any other needs at this time. INSURANCE INSTRUCTOR to check in with pt when appropriate. No other MD orders identified at this time. INSURANCE INSTRUCTOR to continue to follow. Plan: Anticipated discharge home via POV when medically ready. INSURANCE INSTRUCTOR to check in with pt when appropriate. No other MD orders identified at this time. INSURANCE INSTRUCTOR to continue to follow. ERIKA Jewell Addendum: 02/26/17 at 1528 by PHILIP GALLOWAY INSURANCE INSTRUCTOR received phone call from [facility] BALBIR Redman ([phone]) who would like to be updated when pt is discharged as she is due to meet with pt in her home. ERIKA Jewell
--- NOTE | 2017-02-26 12:17 | NUR ---
NUTRITION ASSESSMENT: ASSESS: Pt is a 56 YO female admitted to CCU with ETOH withdrawal prior to entering rehab. Pt had a witnessed seizure 02/22 and again yesterday afternoon. She was stabilized with 2 mg Ativan and sent for CT brain w/o contrast. Neurology was contacted and recommended Keppra 1500mg BID. Current CIWA is ~8. She is on a consistent carbohydrate diet; PO intake 50% - 90% trays. Pt reported that she was drinking ~1/2 gallon of vodka/day. Per chart review, pt's wt has been stable x 1 year. PMHX: Alcohol abuse, Hep C, hiatal hernia, GERD, DM, PTSD, bipolar disorder. LABS: Reviewed. Cr 0.44, Phos 5.0. MEDS: Reviewed. Insulin, thiamine, MVI, ativan, keppra. GI: BM x 2 (02/23). SKIN: No major issues noted. WT: 76.8 kg, BMI 28.2kg/m2, IBW: 56.8kg DIET: Consistent carbohydrate. PO intake 50 - 90% trays. EST. NEEDS: Kcals: 1920-2305kcal/day (25-30kcal/kg) Pro: 75-95g/day (1.0-1.2g/kg) NUTRITION DIAGNOSIS: 1) Inadequate oral intake related to excessive alcohol intake as evidenced by pt reported to drink gallon of vodka/day - IMPROVED. NUTRITION INTERVENTION: 1) Will monitor PO intake and labs MONITOR / EVAL: PO, wt, GI, labs, POC, nutrition status. Will continue to monitor per moderate nutrition risk guidelines.
--- NOTE | 2017-02-26 13:35 | NUR ---
CIWA pt reported increase anxiety and not feeling well. ciwa score 15. pt reporting headache. prn valium and tylenol given per md order. upon follow up with patient, medications effective.
--- NOTE | 2017-02-26 15:06 | NUR ---
spiritual care: follow brief visit. pt having procedure. attempting to make contact with local kier pleater per pt request. calls left to armani the [facility] staff. will continue to follow
--- NOTE | 2017-02-26 18:22 | PCM.PNMED ---
Subjective Date of Service Feb 26, 2017 Subjective Overnight the patient did well without complaint and nothing reported by nursing. Patient's CIWA score around 8. Exam Vital Signs Vital Sign - Last Date Time Temp Pulse Resp B/P Pulse Ox O2 Delivery O2 Flow Rate FiO2 02/26/17 16:10 36.7 67 17 128/66 Room Air 02/26/17 03:51 97 02/22/17 16:00 2.00 Intake and Output 02/25/17 02/25/17 02/26/17 Cumulative From/Thru 15:00 23:00 07:00 02/22/17 12:17 - 02/26/17 06:03 Intake Total 1768 ml 1642 ml 81360 ml Output Total 550 ml 1500 ml 6350 ml Balance 1218 ml 142 ml 4746 ml Intake Oral 540 ml 150 ml 2540 ml IV Total 1228 ml 1492 ml 8556 ml Output Urine Total 550 ml 1500 ml 6350 ml # Voids 1 3 8 # Bowel Movements 2 Lab and Diagnostics Result Diagram: 02/26/17 0310 02/26/17 0310 X-Rays, CTs and MRIs Brain CT IMPRESSION: No acute intracranial disease process. Dictated by: Niecy Acevedo MD, PhD on 02/22/2017 at 14:[address] IMPRESSION: Multilevel degenerative changes. No visualized fracture. Dictated by: Alba Smith M.D. on 02/22/2017 at 14:24 Assessment & Plan 56-year-old female who presents to emergency department for detox from alcohol prior to going into rehabilitation. The patient was in the emergency department she suffered a seizure while walking from triage to her room. Patient then got out of bed and had a second fall while in her room. Seizur disorder, unknown; present on admission; ongoing -Pt seized in the ED and was initially thought to be due to EtOH withdrawal -Today (02/25/17) patient had a third witnessed seizure at 1800 -After recovery pt was asked again about prior seizures not related to EtOH use and replied she does have a seizure disorder -Keppra 1.5g BID -EEG read pending -Patient does volunteer that she was previously diagnosed with pseudoseizures but denies ever having an EEG Alcohol dependence with withdrawal and seizure; present on admission; resolving -Patient drinking half gallon of vodka daily -Multiple attempts to withdraw and detox -CIWA protocol with phenobarbital 130 mg given once at the beginning -Restraints as necessary -Social work referral for CD -Thiamine 200mg daily -U-Tox revealed marijuana, alcohol, and barbiturates that we gave her. 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 Hepatitis C; present on admission; resolved -Previous history of IV drug abuse -Do not see a viral load in her history -Viral load not detected Type II diabetes with neuropathy; present on admission; ongoing and stable -Last A1c was 8.9 -Home medication: 3 units subcutaneous at bedtime Lantus; 0-11 units 3 times a day WM; metformin -Hold metformin -Lantus 10 in the evening -Low-dose correctional with preprandial 5 units -Hold gabapentin 100 mg by mouth 3 times a day GERD-famotidine 20 mg IV twice a day PTSD/bipolar/depression/anxiety-continue sertraline History of heroin abuse Disposition: Likely discharge tomorrow pending results of EEG. Full code GI Prophylaxis: H2 michelle VTE Mechanical Devices: Intermittant Pneumatic CD Resuscitation Status: CPR: Attempt Resuscitation Time spent 35 minutes Attending Statement I interviewed and examined the patient on rounds today. I agree with the assessment and plan as stated above. Karlos Eaton DO Feb 26, 2017 18:22 Camden Huff MD Feb 28, 2017 07:09
[2017-02-26] MEDS: Insulin GLARgine 100 Unit/mL Syringe SUBQ SCH (21:24)
[2017-02-27] VITALS (10 sets, daily range): BP systolic 127–158; BP diastolic 66–88; PULSE 54–69; RESP 12–18; O2SAT 94–99
[2017-02-27] MEDS: Heparin 5,000 Unit/mL Inj SUBQ SCH ×3 (00:53→17:36)
[2017-02-27] MEDS: 0.9% Sodium Chloride 1,000 ML IV SCH ×3 (04:53→20:30)
[2017-02-27 05:46] LABS: BASOPHILS % (AUTO) 0.7 % (0-3); EOSINOPHILS % (AUTO) 3.7 % (0-5); MONOCYTES % (AUTO) 6.9 % (4-12); Mean Corpuscular Hemoglobin 27.4 pg (27.0-35.0); Mean Corpuscular Volume 81.3 fL (81-100); NEUTROPHILS % (AUTO) 46.4 % (40-74); Platelet Count 128 bil/L (150-400)
--- NOTE | 2017-02-27 06:16 | NUR ---
CIWA/Seizure Pt Ciwa score at 11, IV Valium given x2 and Ativan x1. Pt mostly asleep during night. Pt's IV access infiltrated and before a new IV access could be obtained, pt had a witnessed seizure, lasting about 5 min, Ativan was administered IM and pt slowly recovered. No further seizure activity during night, pt denies any pain.
[2017-02-27] MEDS: Multivit-Miner-Folic Acid-Iron Tablet PO SCH (09:09)
[2017-02-27] MEDS: levETIRAcetam Inj 1,500 MG in Dextrose 5% 100 ML IV SCH ×2 (09:09→21:22)
[2017-02-27] MEDS: Insulin LISPRO 300 Unit/3 mL Inj SUBQ SCH ×4 (09:44→20:16)
--- NOTE | 2017-02-27 16:24 | PCM.PNMED ---
Subjective Date of Service Feb 27, 2017 Subjective 56-year-old woman with history of alcohol abuse and seizure disorder presents with alcohol withdrawal and seizures. She acknowledges less tremor and anxiety. She seems more clear mentally. She has no physical complaints. Last seizure was on 02/25/17, while she received high-dose Ativan and Keppra. She has concerns about feeling seizure prodrome. 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 Exam Vital Signs Vital Sign - Last Date Time Temp Pulse Resp B/P Pulse Ox O2 Delivery O2 Flow Rate FiO2 02/27/17 15:25 36.6 63 13 155/86 97 Room Air 02/22/17 16:00 2.00 Intake and Output 02/26/17 02/26/17 02/27/17 Cumulative From/Thru 15:00 23:00 07:00 02/22/17 12:17 - 02/27/17 05:57 Intake Total 2553 ml 1284 ml 52874 ml Output Total 2900 ml 9250 ml Balance -347 ml 1284 ml 5683 ml Intake Oral 880 ml 3420 ml IV Total 1673 ml 1284 ml 50784 ml Output Urine Total 2900 ml 9250 ml # Voids 8 # Bowel Movements 2 Exam General: Centrally obese woman in no acute distress HEENT: sclerae anicteric, oral mucosa moist Neck: no JVD Chest: clear to auscultation Cardiac: S1S2, no murmur Abdomen: BS normal, non-tender Extremities: No pitting edema Neuro: A&O, cranial nerves symmetric, motor strength 5/5, coordination normal, no tremor IVs and Medications Medications Reviewed: Medications were reviewed in detail Lab and Diagnostics Result Diagram: 02/27/1715 02/27/1715 X-Rays, CTs and MRIs Brain CT IMPRESSION: No acute intracranial disease process. Dictated by: Niecy Acevedo MD, PhD on 02/22/2017 at 14:[address] IMPRESSION: Multilevel degenerative changes. No visualized fracture. Dictated by: Alba Smith M.D. on 02/22/2017 at 14:24 Assessment & Plan 56-year-old female who presents to emergency department for detox from alcohol prior to going into rehabilitation. The patient was in the emergency department she suffered a seizure while walking from triage to her room. Patient then got out of bed and had a second fall while in her room. Seizure disorder, unknown; present on admission; ongoing. Pt seized in the ED and was initially thought to be due to EtOH withdrawal. On (02/25/17) patient had a third witnessed seizure at 1800, despite aggressive antiepileptic medication therapy. -Keppra 1.5g BID -EEG read pending -Patient does volunteer that she was previously diagnosed with pseudoseizures but denies ever having an EEG Alcohol dependence with withdrawal. Acute; present on admission; resolving -Patient drinking half gallon of vodka daily -Multiple attempts to withdraw and detox -CIWA protocol with phenobarbital 130 mg given once at the beginning -Restraints as necessary -Social work referral for CD -Thiamine 200mg daily -U-Tox revealed marijuana, alcohol, and barbiturates that we gave her. Did not supervisor opening and picking amphetamines she admits to using -CIWA was a generous 5-7; patient still receiving ativan Anion gap metabolic acidosis; present on admission; resolved - Resolved Hepatitis C; present on admission; resolved -Previous history of IV drug abuse -Do not see a viral load in her history -Viral load not detected Type II diabetes with neuropathy; present on admission; ongoing and stable -Last A1c was 8.9 -Home medication: 3 units subcutaneous at bedtime Lantus; 0-11 units 3 times a day WM; metformin -Hold metformin -Lantus 10 in the evening -Low-dose correctional with preprandial 5 units -Hold gabapentin 100 mg by mouth 3 times a day GERD-famotidine 20 mg IV twice a day PTSD/bipolar/depression/anxiety-continue sertraline History of heroin abuse Disposition: Likely discharge tomorrow if no recurrent seizures and patient is ambulating. Full code GI Prophylaxis: H2 michelle VTE Mechanical Devices: Intermittant Pneumatic CD Resuscitation Status: CPR: Attempt Resuscitation Time spent 35 minutes Camden Huff MD Feb 27, 2017 16:24
[2017-02-27] MEDS: Insulin GLARgine 100 Unit/mL Syringe SUBQ SCH (21:24)
[2017-02-28] MEDS: Heparin 5,000 Unit/mL Inj SUBQ SCH ×2 (00:03→08:54)
[2017-02-28 04:01] VITALS: BP 122/80; PULSE 57; RESP 14; O2SAT 96
[2017-02-28] MEDS: 0.9% Sodium Chloride 1,000 ML IV SCH ×2 (04:54→08:10)
--- NOTE | 2017-02-28 05:03 | NUR ---
CIWA Pt received a 4 on the CIWA scale, pt did state that she had a headache and wanted Tylenol. Post medication, pt fell asleep and did not complain further of pain.
[2017-02-28 06:03] VITALS: PULSE 55
[2017-02-28 08:14] VITALS: PULSE 59
[2017-02-28 08:33] VITALS: BP 123/84; PULSE 62; RESP 16; O2SAT 98
[2017-02-28] MEDS: Multivit-Miner-Folic Acid-Iron Tablet PO SCH (08:53)
[2017-02-28] MEDS: levETIRAcetam Inj 1,500 MG in Dextrose 5% 100 ML IV SCH (08:54)
[2017-02-28] MEDS: Insulin LISPRO 300 Unit/3 mL Inj SUBQ SCH (08:54)
--- NOTE | 2017-02-28 09:29 | PCM.DIMED ---
Discharge Instructions Date of Service Feb 28, 2017 Dates of Hospitalization Feb 22, 2017 at 14:08 Discharge Diagnosis Discharge Diagnosis EtOH withdrawal and seizures Medication Instructions Additional med instructions Keppra 1500mg twice daily sent to [facility] electronically Diet Discharge Diet: Diabetic Activity Discharge Activity: No restrictions Call your provider Call your provider for: Fever or Chills, Shortness of breath, Bleeding, Chest pain Patient Instructions Patient Instructions You were admitted for alcohol withdrawal. You did very well during the withdrawal, however, you did have 3 seizures that we currently feel are not connected to your withdrawal. You stated that you have an underlying seizure or pseudoseizure disorder and were treated with Keppra. We are sending you home with Keppra 1500mg taken twice daily. Please continue this regimen. Please follow up with your primary care doctor (Dr. Sheehan) within 1 week of discharge. Your EEG will be in the medical record once read and finalized. You have done very well to get clean from Heroin and now you are working on alcohol. Keep up the good work and remember to identify and avoid situations where you will be tempted to drink or use other drugs. Follow-up Provider: Aliza Sheehan DO Follow-up with PCP in: 1 week Karlos Eaton DO Feb 28, 2017 09:29
[2017-02-28] MEDS ORDERED: LEVE750T16 PO (09:31)
--- NOTE | 2017-02-28 11:08 | PCM.DC.MED ---
Discharge Summary Date of Service Feb 28, 2017 Dates of Hospitalization Date of Hospital Admission Feb 22, 2017 at 14:08 Date of Discharge: Feb 28, 2017 Providers: Admitting Physician: Asad Marin MD Primary Care Physician: Aliza Sheehan DO Attending Physician: Camden Huff MD Diagnosis at Time of Discharge Diagnosis at Time of Discharge EtOH withdrawal Seizure disorder Type II diabetes mellitus Procedures XRay, CTs & MRIs Brain CT IMPRESSION: No acute intracranial disease process. Dictated by: Niecy Acevedo MD, PhD on 02/22/2017 at 14:[address] IMPRESSION: Multilevel degenerative changes. No visualized fracture. Dictated by: Alba Smith M.D. on 02/22/2017 at 14:24 Other Diagnostics EEG ordered but no interpretation available at time of discharge. . Brief History History of Present Illness (per admission note): 56-year-old female with ongoing alcohol abuse with seizures, anxiety/depression /bipolar/PTSD, and diabetes who presented to emergency department today requesting detox. Patient last presented for detox on December 16 of this year. Her past history is relevant for alcohol and benzodiazepine dependence. This morning when walking from triage to her room in the ED she had a seizure. The nurse able to catch the patient before she hit the ground and administered 2 mg of Ativan which stopped the seizure. Patient's CT of her head was negative. After returning to her room and the patient attempted to climb out of bed and fell, hitting her head. Second CT was negative for hemorrhage. The patient states that she cannot drink anymore and reports that she has been drinking a half gallon of vodka a day. She moved here from [employer] and is currently renting a room from friend. She is unemployed. At time of admission she is somnolent due to the amount of Ativan she received prior to coming to the floor but denies nausea, vomiting, headache, abdominal pain. She does state that she has had some chest pain was related to shortness of breath, and appears to have started around the time of her seizure, and is now resolved. CBC was unremarkable. CMP showed a lactic acid 2.9, and glucose of 242. Her blood alcohol level was 237 on admit. . Hospital Course Seizure disorder, pseudoseizures versus epilepsy; present on admission; ongoing. Pt seized in the ED and was initially thought to be due to EtOH withdrawal. On (02/25/17) patient had a third witnessed seizure at 1800, despite aggressive antiepileptic medication therapy. She reports long-standing history of seizures even unrelated to episodes of alcohol withdrawal. States she has been told she had "pseudoseizures" but has never had EEG testing. EEG is scheduled to be read by Dr. Capps this week. -Keppra 1.5g BID was well tolerated -EEG read pending at time of discharge - We recommended that she follow-up with primary care provider to get final read on EEG, then consider discontinuing Keppra, or neurology referral Alcohol dependence with withdrawal. Acute; present on admission; resolving -Patient drinking half gallon of vodka daily -Multiple attempts to withdraw and detox -CIWA protocol with phenobarbital 130 mg given once -Social work referral for CD -Thiamine 200mg daily -U-Tox revealed marijuana, alcohol, and barbiturates that we gave her. Did not picker tender amphetamines she admits to using -resolved at time of discharge Anion gap metabolic acidosis; present on admission; resolved - Resolved Hepatitis C; present on admission; resolved -Previous history of IV drug abuse -Do not see a viral load in her history -Viral load not detected Type II diabetes with neuropathy; present on admission; ongoing and stable -Last A1c was 8.9 . Exam Vital Signs (Last) Date Time Temp Pulse Resp B/P Pulse Ox O2 Delivery O2 Flow Rate FiO2 02/28/17 09:30 Supplement Oxygen 02/28/17 08:33 37.1 62 16 123/84 98 02/22/17 16:00 2.00 Exam General: Centrally obese woman in no acute distress HEENT: sclerae anicteric, oral mucosa moist Neck: no JVD Chest: clear to auscultation Cardiac: S1S2, no murmur Abdomen: BS normal, non-tender Extremities: No pitting edema Neuro: A&O, cranial nerves symmetric, ambulating with coordination normal, no tremor Test 02/22/17 13:55 02/22/17 22:14 02/23/17 05:20 02/24/17 05:10 Lipase 36U/L (13-60) Alcohols 237mg/dL (0-10) Urine Color Yellow (YELLOW) Urine Appearance Clear (CLEAR,HAZY) Urine pH 5.5 (5.0-8.0) Urine Specific [place] 1.020 (1.003-1.035) Urine Protein Negativemg/dL (NEG,TRACE) Urine Glucose (UA) Negativemg/dL (NEGATIVE) Urine Ketones Negativemg/dL (NEGATIVE) Urine Occult Blood Negative (NEGATIVE) Urine Nitrite Negative (NEGATIVE) Urine Bilirubin Negative (NEGATIVE) Urine Urobilinogen Normalmg/dL (NORMAL) Urine Leukocyte Esterase Negative (NEGATIVE) Urine RBC 0-2/hpf (0-2) Urine WBC 0-5/hpf (0-5) Urine Epithelial Cells Few/hpf (NONE-MOD) Urine Crystals None seen (NONE SEEN) Urine Bacteria None/hpf (NONE-FEW) Urine Hyaline Casts None/lpf (NONE) Urine Granular Casts None seen (NONE SEEN) Urine Waxy Casts None seen (NONE SEEN) Urine Red Blood Cell Casts None seen (NONE SEEN) Urine White Blood Cell Casts None seen (NONE SEEN) Urine Mucus None seen (None Seen) Urine Trichomonas None seen (NONE SEEN) Urine Yeast None (NONE SEEN) Urinalysis Comment None Urine Culture Reflexed Not indicated Urine Opiates Screen Negative Urine Methadone Screen Negative Urine Barbiturates Screen Positive Urine Amphetamines Screen Positive Urine Benzodiazepines Screen Negative Urine Cocaine Metabolite Screen Negative Urine Cannabinoids Screen Positive Hold Beal Top Tube Received (Received) Hepatitis C Virus Quantitation Hcv not detectedIU/mL Hepatitis C RNA (PCR) log10 (.) Hepatitis C Comment Comment (.) Hemoglobin A1c 9.8% (4.8-5.6) Thyroid Stimulating Hormone (TSH) 0.696uIU/mL (0.450-4.500) Test 02/24/17 18:49 02/26/17 03:10 02/27/17 05:15 Lactic Acid Level 3.8mmol/L (0.4-2.0) Total Creatine Kinase 48U/L (21-215) Troponin T < 0.010ug/L (0.0-0.011) Phosphorus Level 5.0mg/dL (2.5-4.9) Magnesium Level 1.8mg/dL (1.6-2.6) Procalcitonin < 0.02ng/mL (0.00-0.08) White Blood Count 4.1th/mm3 (3.8-10.1) Red Blood Count 4.49mil/mm3 (3.90-5.20) Hemoglobin 12.3g/dL (12.0-15.6) Hematocrit 36.5% (35.0-46.0) Mean Corpuscular Volume 81.3fL (81-100) Mean Corpuscular Hemoglobin 27.4pg (27.0-35.0) Mean Corpuscular Hemoglobin Concent 33.7% (32.0-37.0) Red Cell Distribution Width 13.5% (12.3-15.4) Platelet Count 128bil/L (150-400) Neutrophils (%) (Auto) 46.4% (40-74) Lymphocytes (%) (Auto) 41.1% (14-46) Monocytes (%) (Auto) 6.9% (4-12) Eosinophils (%) (Auto) 3.7% (0-5) Basophils (%) (Auto) 0.7% (0-3) Sodium Level 141mEq/L (134-144) Potassium Level 4.6mEq/L (3.5-5.2) Chloride Level 106mEq/L (97-108) Carbon Dioxide Level 22mmol/L (18-29) Blood Urea Nitrogen 10mg/dL (6-24) Creatinine 0.38mg/dL (0.57-1.00) Estimat Glomerular Filtration Rate 253mL/min (>59) Glucose Level 111mg/dL (60-99) Calcium Level 8.7mg/dL (8.5-10.1) Total Bilirubin 0.4mg/dL (0.0-1.2) Aspartate Amino Transf (AST/SGOT) 20U/L (0-50) Alanine Aminotransferase (ALT/SGPT) 13U/L (0-32) Alkaline Phosphatase 60U/L (25-150) Total Protein 6.3g/dL (6.4-8.4) Albumin 3.7g/dL (3.4-5.0) Discharge Medications Discharge Medications Gabapentin (Gabapentin) 100 Mg Capsule 100 MG PO TID (Reported) Hum Insulin NPH/Reg Insulin Hm (HUMulin 70/30 U100 Insulin Kwikpen) 100 Unit/1 Ml Insuln.pen 0-11 UNITS SUBQ TIDWM (Reported) Insulin Glargine (Lantus U100 Solostar Insulin Pen) 100 Unit/1 Ml Insuln.pen 3 UNIT SUBQ HS (Reported) Levetiracetam (Keppra) 750 Mg Tablet 1,500 MG PO BID Prescribed by: SUSAN NEVAREZ DO Metformin (Glucophage) 1,000 Mg Tablet 1,000 MG PO BID (Reported) Sertraline HCl (Sertraline) 100 Mg Tablet 150 MG PO DAILY (Reported) As needed Albuterol Sulfate (Ventolin HFA Inhaler) 200 Puff/18 Gm Inhaler 1-2 PUFFS INH q4 -6 hours PRN PRN For Shortness of Breath (Reported) Ipratropium/Albuterol Sulfate (Iprat-Albut 0.5-3(2.5) mg/3 mL Inhalant Soln) 3 Ml Ampul.neb 3 ML INH QID PRN PRN For Shortness of Breath (Reported) Additional med instructions Keppra 1500mg twice daily sent to [facility] electronically Followup Plan Disposition: Home Discharge Diet: Diabetic Discharge Activity: No restrictions Patient Instructions You were admitted for alcohol withdrawal. You did very well during the withdrawal, however, you did have 3 seizures that we currently feel are not connected to your withdrawal. You stated that you have an underlying seizure or pseudoseizure disorder and were treated with Keppra. We are sending you home with Keppra 1500mg taken twice daily. Please continue this regimen. Please follow up with your primary care doctor (Dr. Sheehan) within 1 week of discharge. Your EEG will be in the medical record once read and finalized. You have done very well to get clean from Heroin and now you are working on alcohol. Keep up the good work and remember to identify and avoid situations where you will be tempted to drink or use other drugs. Follow-up Provider: Aliza Sheehan DO Follow-up with PCP in: 1 week Time spent 35 minutes copies to: Aliza Sheehan DO; Nilson Capps MD, Jeffrey W MD Feb 28, 2017 11:08
--- NOTE | 2017-02-28 11:20 | NUR ---
Discharge Pt discharged at 1118. She was given instructions for follow up care. She was given medication education. She was informed that a prescription was electronically sent to [facility] pharmacy. She denied questions. She left with all of her belongings in her possession. The patient was asked to wait a couple of minutes so that the social services director could call a cab to transport her home. She declined to wait and insisted on walking herself out and reported she would be walking home.
--- NOTE | 2017-02-28 11:45 | NUR ---
Social Work Note: Discharge Data& Assessment: Per MD in multidisciplinary rounds, pt is medically ready for discharge. Carine Mccracken is a 56 year old female admitted on 02/22/2017 for ETOH W/D. Per MD pt is medically improved and ready for discharge. MD does not identify any concerns with pt capacity for self care. Pt is independent with self care at this time and independent with ambulation. PROFESSOR OF CRIMINAL JUSTICE met with pt at bedside to confirm discharge plan and assess for any unmet needs. Pt denies any needs, pt identified that she does not have a ride home today and was thinking of taking a bus-but she is $1 short-or walking home. PROFESSOR OF CRIMINAL JUSTICE identified that pt has traveled by Medicaid transport in the past and asked pt if that was something she was interested doing again if she qualified. Pt at first agreed to traveling by Medicaid transport, but then stopped PROFESSOR OF CRIMINAL JUSTICE in the manzo and explained that she would rather just walk home or take the bus. PROFESSOR OF CRIMINAL JUSTICE explained that it would only take 5 minutes to verify eligibility and to arrange the transportation. Pt states "but then I know it will be another half hour before they pick me up, I am alright." Pt continued to decline waiting and walked out of the hospital on her own. Pt denied any needs, no other discharge needs identified. RN notified. Plan: Per pt is medically ready to discharge home via POV. Pt declined Medicaid transportation. Pt denied any other needs. No other discharge needs or MD orders identified. ERIKA Jewell
== END 2017-02-28 11:15 | disposition home or self-care (01) | DRG 897 ==
LOC: SED 12:05 → CCU 14:08 → PCC 02-23 15:35 → MPC 02-23 21:49 → CCU 02-24 19:28 → PCC 02-25 08:51
PROVIDERS: ADMIT Hospitalist; ATTEND Internal Medicine
PROC: 4A033R1 Measurement of Arterial Saturation, Peripheral, Percutaneous Approach (ICD-10-PCS; principal; 2017-02-24)
DX: F10.230 Alcohol dependence with withdrawal, uncomplicated (principal); E87.2 Acidosis; E11.40 Type 2 diabetes mellitus with diabetic neuropathy, unspecified; F13.20 Sedative, hypnotic or anxiolytic dependence, uncomplicated; S09.90XA Unspecified injury of head, initial encounter; F31.9 Bipolar disorder, unspecified; G40.909 Epilepsy, unspecified, not intractable, without status epilepticus; K21.9 Gastro-esophageal reflux disease without esophagitis; F43.10 Post-traumatic stress disorder, unspecified; Y90.7 Blood alcohol level of 200-239 mg/100 ml; Y92.230 Patient room in hospital as the place of occurrence of the external cause; W01.0XXA Fall on same level from slipping, tripping and stumbling without subsequent striking against object, initial encounter; R29.6 Repeated falls; Y93.9 Activity, unspecified; Z79.51 Long term (current) use of inhaled steroids; Z91.5 Personal history of self-harm; Z79.4 Long term (current) use of insulin

== ENCOUNTER 2017-03-09 20:41 | Emergency (ER) | payer MEDICAID, OTHER ==
[~2017-03-09 20:41] MED LIST changes: +ALBU18HF INH; -BUPR1TAB36 SL; +GABA-500 PO; -GABA100C PO; +HUM100IN3 SUBQ; -INSLIS SUBQ; +IPRA3AMP INH; -LAMO25TA PO; +LEVE750T16 PO; +METF1000 PO; -METF500T PO; -NICO1PAT16 TRANSDERM; -OLAN5TAB PO; +SERT100T9 PO; -SERT50TA9 PO
[2017-03-09 20:46] VITALS: BP 123/92
[2017-03-09 21:03] VITALS: BP 132/81; PULSE 86; RESP 12; O2SAT 82
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
[2017-03-09 21:25] VITALS: BP 148/88; PULSE 88; RESP 22; O2SAT 98
[2017-03-09] MEDS ORDERED: Naloxone 0.4 mg/mL 10 mL Inj IM PRN ×2 (21:25→23:45)
[2017-03-09] MEDS ORDERED: Ondansetron 8 mg ODT Tablet ONE (22:18)
[2017-03-09 22:45] VITALS: RESP 10; O2SAT 98
[2017-03-09] MEDS ORDERED: Ondansetron 8 mg ODT Tablet PO ONE ×2 (23:35)
[2017-03-09 23:46] VITALS: BP 126/52; PULSE 73; RESP 15; O2SAT 99
[2017-03-10 02:21] VITALS: BP 136/91; PULSE 86; RESP 22; O2SAT 100
== END 2017-03-10 02:22 | disposition home or self-care (01) ==
LOC: SED 20:41 → EDBD 20:41 → SED 03-10 02:22
DX: T50.901A Poisoning by unspecified drugs, medicaments and biological substances, accidental (unintentional), initial encounter (principal); F19.10 Other psychoactive substance abuse, uncomplicated; K21.9 Gastro-esophageal reflux disease without esophagitis; E11.9 Type 2 diabetes mellitus without complications; F43.10 Post-traumatic stress disorder, unspecified; F17.200 Nicotine dependence, unspecified, uncomplicated; Z79.4 Long term (current) use of insulin; Z79.84 Long term (current) use of oral hypoglycemic drugs; Z88.8 Allergy status to other drugs, medicaments and biological substances
CPT/HCPCS: 81002; 96372; 99284; J2310

== ENCOUNTER 2017-03-18 09:37 | Emergency (ER) | payer OTHER ==
[~2017-03-18] VITALS: Ht 165.1 cm; Wt 81.0 kg
[2017-03-18 09:47] VITALS: BP 132/85; PULSE 99; RESP 16; O2SAT 100
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
[2017-03-18 12:01] VITALS: BP 145/84; PULSE 95; RESP 16; O2SAT 98
[2017-03-18 12:44] LABS: BASOPHILS % (AUTO) 0.3 % (0-3); EOSINOPHILS % (AUTO) 1.8 % (0-5); MONOCYTES % (AUTO) 7.1 % (4-12); Mean Corpuscular Volume 81.5 fL (81-100); NEUTROPHILS % (AUTO) 53.3 % (40-74); Platelet Count 179 bil/L (150-400)
[2017-03-18 15:02] VITALS: BP 134/86; PULSE 91; RESP 16; O2SAT 95
== END 2017-03-18 16:21 | disposition home or self-care (01) ==
LOC: SED 09:37
DX: S02.2XXA Fracture of nasal bones, initial encounter for closed fracture (principal); W19.XXXA Unspecified fall, initial encounter; Y93.89 Activity, other specified; Y92.89 Other specified places as the place of occurrence of the external cause; Y99.8 Other external cause status; F10.120 Alcohol abuse with intoxication, uncomplicated; R45.851 Suicidal ideations; E11.9 Type 2 diabetes mellitus without complications; F31.9 Bipolar disorder, unspecified; F41.8 Other specified anxiety disorders; F17.200 Nicotine dependence, unspecified, uncomplicated; Z91.5 Personal history of self-harm; Z90.89 Acquired absence of other organs; Z79.4 Long term (current) use of insulin; Z79.01 Long term (current) use of anticoagulants; Z88.1 Allergy status to other antibiotic agents
CPT/HCPCS: 36415; 70450; 70486; 72125; 80053; 81002; 81025; 82075; 85025; 96372; 99285; J1885